=== PATIENT | female | born 1970 | race Caucasian/White ===

== ENCOUNTER → 2021-11-03 | Outpatient (CLI) | payer BC ==
[~2021-11-03] MED LIST: PROAIR HFA0.09 MG/AC IH; TYLENOL EXTRA500 M2 PO; ZITHROMAX 250M250 MG PO
== END ==
LOC: MAMMO 10-29 15:15
DX: Z12.31 Encounter for screening mammogram for malignant neoplasm of breast (principal)

== ENCOUNTER 2022-05-06 15:01 | Outpatient (RCR) | payer BC | END 2022-05-14 | disposition home or self-care (01) | LOC: PT | DX: M54.2 Cervicalgia (principal) ==

== ENCOUNTER → 2023-06-10 | Outpatient (CLI) | payer BC ==
[~2023-06-10] MED LIST changes: +Iohexol 300 - 100 ML VIAL IV ONE
== END ==
LOC: RAD 15:06
DX: R91.1 Solitary pulmonary nodule (principal); K76.0 Fatty (change of) liver, not elsewhere classified
CPT/HCPCS: Q9967

== ENCOUNTER → 2023-06-21 | Outpatient (CLI) | payer BC ==
[~2023-06-21] MED LIST changes: -Iohexol 300 - 100 ML VIAL IV ONE
== END ==
LOC: RAD 15:32
DX: M25.551 Pain in right hip (principal)